=== PATIENT | male | born 1995 | race Caucasian/White ===

== ENCOUNTER → 2016-03-17 | Outpatient (CLI) | payer BC ==
[~2016-03-17] MED LIST: GLUCOSAMINE & C1 CA1 PO; [UNRECOGNIZED DRUG - OTHER] PO
== END ==
LOC: MC.RAD 09:54
DX: D24.2 Benign neoplasm of left breast (principal)

== ENCOUNTER 2018-05-16 09:27 | Emergency (ER) | payer BC ==
[~2018-05-16] VITALS: Ht 208.3 cm; Wt 122.7 kg
[2018-05-16 09:33] VITALS: BP 163/77
[2018-05-16] MEDS ORDERED: MASON NATURAL2000 IU PO (09:48)
[2018-05-16] MEDS ORDERED: MULTI VITAMINS1 TAB PO (09:48)
[2018-05-16 11:27] LABS: COLLECTION METHOD CLEAN CATCH
[2018-05-16 11:35] LABS: MUCOUS Present /lpf; PH 6 (5-8); SQUAMOUS EPITHELIAL 0-2 /hpf; URINE APPEARANCE Clear; URINE BACTERIA None Seen /hpf; URINE BILIRUBIN Negative (NEGATIVE); URINE BLOOD Negative (NEGATIVE); URINE COLOR Yellow; URINE GLUCOSE Negative (NEGATIVE); URINE KETONE Negative (NEGATIVE); URINE LEUKOCYTE ESTERASE Negative (NEGATIVE); URINE NITRATE Negative (NEGATIVE); URINE PROTEIN(semi-quant) Negative (NEGATIVE); URINE RBC 0-2 /hpf; URINE UROBILINOGEN Negative (NEGATIVE)
[2018-05-16] MEDS ORDERED: BACTRIM DS 8001 TAB PO (11:39)
[2018-05-16 11:57] VITALS: PULSE 67; TEMP 98
== END 2018-05-16 11:57 | disposition home or self-care (01) ==
LOC: COL.ER 09:27
PROVIDERS: Emergency Medicine
DX: N50.811 Right testicular pain (principal)